=== PATIENT | male | born 1965 | race Caucasian/White ===

== ENCOUNTER 2016-10-08 14:36 | Emergency (ER) | payer BC ==
--- NOTE | 2016-10-08 15:11 | EDM.PDOC ---
ED HISTORY OF PRESENT ILLNESS - General Chief Complaint: Respiratory Problem Stated Complaint: COUGH Time Seen by Provider: 10/08/16 14:54 Source of Information: Reports: Patient History Limitations: Reports: No limitations - History of Present Illness INITIAL COMMENTS - FREE TEXT/NARRATIVE: Presents reporting a 48 hour history of hacking dry cough, mild sore throat. No fever, chest pain, ear fullness or facial fullness. He does not smoke. - Related Data Allergies/ADRs: Allergies Allergy/AdvReac Type Severity Reaction Status Date / Time Penicillins Allergy Cannot Verified 10/08/16 14:43 Remember Sulfa (Sulfonamide Allergy Swelling Verified 10/08/16 14:43 Antibiotics) Home Meds: Home Meds . [No Known Home Meds] 04/21/16 [History] Cimetidine [Tagamet Hb] 200 mg PO DAILY 10/08/16 [History] Multivitamin [Multivitamins] 1 cap PO DAILY 10/08/16 [History] Pantoprazole Sodium [Protonix] 10/08/16 [History] Sucralfate [Carafate] 2 tsp PO Q4H 10/08/16 [History] Past Medical History - Past Health History Medical/Surgical History: Denies Medical/Surgical History Gastrointestinal History: Reports: Other (see below) Other Gastrointestinal History: ULCER Other Endocrine/Metabolic History: hx adrenal surgery for phenochromocytoma - Past Surgical History Other Musculoskeletal Surgeries/Procedures:: left acl reconstruction Social & Family History - Family History Family Medical History: Noncontributory - Tobacco Use Smoking Status *Q: Never Smoker Years of Tobacco use: 35 - Caffeine Use Caffeine Use: Reports: Coffee - Alcohol Use Days Per Week of Alcohol Use: 1 Number of Drinks Per Day: 4 Total Drinks Per Week: 4 - Recreational Drug Use Recreational Drug Use: No ED ROS GENERAL - Review of Systems Review Of Systems: ROS reveals no pertinent complaints other than HPI. ED EXAM, GENERAL - Physical Exam Exam: See Below Exam Limited By: No limitations General Appearance: alert, no apparent distress Ears: normal external exam, other (cerumen impaction right) Nose: normal inspection Throat/Mouth: Other (Mild posterior pharynx irritation but no swelling or exudate) Head: atraumatic, normocephalic Neck: normal inspection. No: lymphadenopathy (L), lymphadenopathy (R) Respiratory/Chest: no respiratory distress, lungs clear, normal breath sounds, other (Almost constant hacking dry cough and exam room) Cardiovascular: normal peripheral pulses, regular rate, rhythm, no murmur GI/Abdominal: soft Neurological: alert, oriented Psychiatric: normal affect, normal mood Skin Exam: Warm, Dry, Intact, Normal color, No rash Lymphatic: no adenopathy Course - Vital Signs Last Recorded V/S: Last Vital Signs Temp 36.7 C 10/08/16 14:41 Pulse 108 H 10/08/16 14:41 Resp 20 10/08/16 14:41 BP 131/94 H 10/08/16 14:41 Pulse Ox 93 L 10/08/16 14:41 Departure - Departure Time of Disposition: 15:05 Disposition: Home, Self-Care 01 Condition: good Clinical Impression: Bronchitis Referrals: PCP,None [Primary Care Provider] - [facility] [Outside] [facility] [Outside] Forms: ED Department Discharge Additional Instructions: 1. Take your steroid 2 tabs daily for 5 days. Take 3 today. 2. Cheratussin 2 tsp every 4-6 hours as needed for cough--no driving or operating machinery. 3. Tessalon pearls 2 every 8 hours as needed for cough. 4. Push oral fluids.
[2016-10-08 15:46] VITALS: BP 105/67
== END 2016-10-08 15:42 | disposition home or self-care (01) ==
LOC: MW.ED 14:36
DX: J40 Bronchitis, not specified as acute or chronic (principal); Z88.0 Allergy status to penicillin; Z88.2 Allergy status to sulfonamides; Z79.899 Other long term (current) drug therapy; Z98.890 Other specified postprocedural states
CPT/HCPCS: 99283

== ENCOUNTER 2017-03-02 10:44 | Emergency (ER) | payer BC ==
--- NOTE | 2017-03-02 10:51 | EDM.PDOC ---
ED HPI GENERAL MEDICAL PROBLEM - General Chief Complaint: Genitourinary Problem Stated Complaint: PEE ALOT BLADER INFECTION, RIGHT THUMB INPAIN Time Seen by Provider: 03/02/17 10:45 Source of Information: Reports: Patient History Limitations: Reports: No Limitations - History of Present Illness INITIAL COMMENTS - FREE TEXT/NARRATIVE: HISTORY AND PHYSICAL: History of present illness: [Patient comes to the emergency room complaining of urinary frequency for the past 1 month. States that he is feeling off, and just not feeling like his normal self. He denies burning with urination and blood in his urine. No penile discharge. No urinary urgency. He feels as though he is not always completely empty out his bladder when he urinates though this is not the case today. Typically urinates large amount every hour. Complains of a nagging ache sensation to his right lower abdomen for the last month as well. He has not had fever or chills. He denies body aches or pains. No chest pain shortness of breath or difficulty breathing. He has not taken any medications for his symptoms. He typically works 7 days a week and thus has not had time to follow- up with his provider who is in [place] where patient lives. Denies increased appetite and thirst. Has a history of acid reflux for which he takes Prevacid.] Review of systems: As per history of present illness and below otherwise all systems reviewed and negative. Past medical history: As per history of present illness and as reviewed below otherwise noncontributory. Surgical history: As per history of present illness and as reviewed below otherwise noncontributory. Social history: No reported history of drug or alcohol abuse. Family history: As per history of present illness and as reviewed below otherwise noncontributory. Physical exam: HEENT: Atraumatic, normocephalic. Oral mucous members are pink and moist. Lungs: Clear to auscultation, breath sounds equal bilaterally. Heart: S1S2, regular rate and rhythm. Abdomen: Bowel sounds are normoactive throughout. Abdomen is soft and nondistended. Is tender with palpation over the suprapubic area, is otherwise nontender with palpation. No CVA tenderness. No masses guarding or rebound. Pelvis: Stable nontender. Genitourinary: Deferred. Rectal: Deferred. Extremities: Atraumatic, negative for cords or calf pain. Neurovascular unremarkable. Neuro: Awake, alert, oriented. Cranial nerves II through XII unremarkable. Cerebellum unremarkable. Motor and sensory unremarkable throughout. Exam nonfocal. Diagnostics: [UA, urine culture, CBC, CMP] Impression: [Urinary tract infection] Plan: [Urinalysis shows positive nitrites. Urine culture pending. Rx written for ciprofloxacin 500 mg #28 sig one by mouth twice a day 0 refills. CBC and CMP are within normal limits. Patient is recommended to follow-up with his primary care provider to recheck his urine and discuss any other complaints or concerns that he may have.] Definitive disposition and diagnosis as appropriate pending reevaluation and review of above. - Related Data Allergies Allergy/AdvReac Type Severity Reaction Status Date / Time Penicillins Allergy Cannot Verified 03/02/17 10:45 Remember Sulfa (Sulfonamide Allergy Swelling Verified 03/02/17 10:45 Antibiotics) Home Meds: Home Meds Multivitamin [Multivitamins] 1 cap PO DAILY 10/08/16 [History] Lansoprazole [Prevacid] 03/02/17 [History] Zolpidem Tartrate [Ambien] 03/02/17 [History] Past Medical History - Past Health History Medical/Surgical History: Denies Medical/Surgical History Gastrointestinal History: Reports: Other (See Below) Other Gastrointestinal History: ULCER Other Endocrine/Metabolic History: hx adrenal surgery for phenochromocytoma - Past Surgical History Other Musculoskeletal Surgeries/Procedures:: left acl reconstruction Social & Family History - Family History Family Medical History: Noncontributory - Tobacco Use Smoking Status *Q: Never Smoker Years of Tobacco use: 35 - Caffeine Use Caffeine Use: Reports: Coffee - Alcohol Use Days Per Week of Alcohol Use: 1 Number of Drinks Per Day: 4 Total Drinks Per Week: 4 - Recreational Drug Use Recreational Drug Use: No ED ROS GENERAL - Review of Systems Review Of Systems: ROS reveals no pertinent complaints other than HPI. ED EXAM, RENAL/ - Physical Exam Exam: See Below Course - Vital Signs Last Recorded V/S: Last Vital Signs Temp 97.5 F 03/02/17 10:47 Pulse 101 H 03/02/17 10:47 Resp 20 03/02/17 10:47 BP 148/99 H 03/02/17 10:47 Pulse Ox 98 03/02/17 10:47 - Orders/Labs/Meds Orders: Active Orders 24 hr Category Date Time Status CULTURE URINE [RM] Stat Lab 03/02/17 10:57 Received Labs: Laboratory Tests 03/02/17 03/02/17 03/02/17 Range/Units 10:58 10:58 10:58 WBC 8.20 (4.0-11.0) K/uL RBC 5.41 (4.50-5.90) M/uL Hgb 16.0 (13.0-17.0) g/dL Hct 46.7 (38.0-50.0) % MCV 86.3 (80.0-98.0) fL MCH 29.6 (27.0-32.0) pg MCHC 34.3 (31.0-37.0) g/dL RDW Std Deviation 42.9 (28.0-62.0) fl RDW Coeff of Stephen 14 (11.0-15.0) % Plt Count 267 (150-400) K/uL MPV 10.60 (7.40-12.00) fL Neut % (Auto) 59.4 (48.0-80.0) % Lymph % (Auto) 27.9 (16.0-40.0) % Dukes % (Auto) 10.4 (0.0-15.0) % Eos % (Auto) 1.8 (0.0-7.0) % Baso % (Auto) 0.5 (0.0-1.5) % Neut # (Auto) 4.9 (1.4-5.7) K/uL Lymph # (Auto) 2.3 (0.6-2.4) K/uL Dukes # (Auto) 0.9 H (0.0-0.8) K/uL Eos # (Auto) 0.2 (0.0-0.7) K/uL Baso # (Auto) 0.0 (0.0-0.1) K/uL Nucleated RBC % 0.0 /100WBC Nucleated RBCs # 0 K/uL Sodium 142 (136-146) mmol/L Potassium 4.5 (3.5-5.1) mmol/L Chloride 109 (98-110) mmol/L Carbon Dioxide 23 (21-31) mmol/L BUN 16 (6.0-23.0) mg/dL Creatinine 1.1 (0.6-1.5) mg/dL Est Cr Clr Drug Dosing 82.72 mL/min Estimated GFR (MDRD) > 60.0 ml/min Glucose 100 (60-110) mg/dL Calcium 9.7 (8.8-10.8) mg/dL Total Bilirubin 0.5 (0.1-1.5) mg/dL AST 23 (5-40) IU/L ALT 41 (8-54) IU/L Alkaline Phosphatase 84 (40-150) Total Protein 7.7 (6.0-8.0) g/dL Albumin 4.5 (3.5-5.0) g/dL Globulin 3.2 (2.0-3.5) g/dL Albumin/Globulin Ratio 1.4 (1.3-2.8) Urine Color YELLOW Urine Appearance CLEAR Urine pH 5.5 (5.0-8.0) Ur Specific [place] <= 1.005 (1.001-1.035) Urine Protein NEGATIVE (NEGATIVE) mg/dL Urine Glucose (UA) NEGATIVE (NEGATIVE) mg/dL Urine Ketones NEGATIVE (NEGATIVE) mg/dL Urine Occult Blood NEGATIVE (NEGATIVE) Urine Nitrite POSITIVE H (NEGATIVE) Urine Bilirubin NEGATIVE (NEGATIVE) Urine Urobilinogen 0.2 (<2.0) EU/dL Ur Leukocyte Esterase NEGATIVE (NEGATIVE) Urine RBC 0-2 (0-2/HPF) Urine WBC 0-1 (0-5/HPF) Ur Epithelial Cells RARE (NONE-FEW) Urine Bacteria FEW (NEGATIVE) Departure - Departure Time of Disposition: 11:30 Disposition: Home, Self-Care 01 Condition: Good Clinical Impression: UTI, Urinary tract infectious disease - Discharge Information Instructions: Urinary Tract Infection, Adult, [id number] Referrals: PCP,None [Primary Care Provider] - Forms: ED Department Discharge Additional Instructions: The following information is given to patients seen in the emergency department who are being discharged to home. This information is to outline your options for follow-up care. We provide all patients seen in our emergency department with a follow-up referral. The need for follow-up, as well as the timing and circumstances, are variable depending upon the specifics of your emergency department visit. If you don't have a primary care physician on staff, we will provide you with a referral. We always advise you to contact your personal physician following an emergency department visit to inform them of the circumstance of the visit and for follow-up with them and/or the need for any referrals to a consulting specialist. The emergency department will also refer you to a specialist when appropriate. This referral assures that you have the opportunity for follow-up care with a specialist. All of these measure are taken in an effort to provide you with optimal care, which includes your follow-up. Under all circumstances we always encourage you to contact your private physician who remains a resource for coordinating your care. When calling for follow-up care, please make the office aware that this follow-up is from your recent emergency room visit. If for any reason you are refused follow-up, please contact the [facility] emergency department at and asked to speak to the emergency department charge nurse. [facility] [address] [place] [id number] Follow-up with your primary care provider or the clinic listed above in 7 days. Take antibiotics as prescribed. Push fluids. Return to ER as needed as discussed. - My Orders Last 24 Hours: My Active Orders 03/02/17 10:57 CULTURE URINE [RM] Stat - Assessment/Plan Last 24 Hours: My Active Orders 03/02/17 10:57 CULTURE URINE [RM] Stat
[2017-03-02 11:23] LABS: CHLORIDE,CL 109 mmol/L (98-110); SODIUM,NA 142 mmol/L (136-146)
[2017-03-02 11:37] VITALS: BP 124/94
== END 2017-03-02 11:30 | disposition home or self-care (01) ==
LOC: MW.ED 10:44
DX: N39.0 Urinary tract infection, site not specified (principal); Z88.0 Allergy status to penicillin; Z88.2 Allergy status to sulfonamides
CPT/HCPCS: 36415; 80053; 81001; 85025; 87086; 99283

== ENCOUNTER 2017-05-11 10:18 | Emergency (ER) | payer BC ==
[2017-05-11] MEDS ORDERED: Sodium Chloride 0.9% 2.5 ML Syringe FLUSH PRN (10:22)
[2017-05-11] MEDS ORDERED: Sodium Chloride 0.9% 10 ML Syringe FLUSH PRN (10:22)
[2017-05-11] MEDS ORDERED: Sodium Chloride 0.9% 1,000 ML IV SCH (10:30)
--- NOTE | 2017-05-11 10:37 | EDM.PDOC ---
ED HPI GENERAL MEDICAL PROBLEM - General Stated Complaint: SICK Time Seen by Provider: 05/11/17 10:19 Source of Information: Reports: Patient History Limitations: Reports: No Limitations - History of Present Illness INITIAL COMMENTS - FREE TEXT/NARRATIVE: HISTORY AND PHYSICAL: []52-year-old male presenting with cough and sinus pressure History of Present Illness: []Patient has history of bronchitis. He is having chest wall discomfort due to his coughing. Review of Systems: As per history of present illness and below otherwise all systems reviewed and negative. Past medical history: As per history of present illness and as reviewed below otherwise noncontributory. Surgical history: As per history of present illness and as reviewed below otherwise noncontributory. Social history: No reported history of drug or alcohol abuse. Family history: As per history of present illness and as reviewed below otherwise noncontributory. Physical exam: Alert and oriented male who is answering questions in about/3-4 word sentences, due to coughing with talking HEENT: Atraumatic, normocehpalic, pupils reactive, negative for conjunctival pallor or scleral icterus, mucous membranes moist, throat red, alert a creamy exudate noted to the posterior pharynx, neck supple, nontender, trachea midline. Lungs: Mild wheezing to auscultation, breath sounds equal bilaterally, chest non tender. Heart: S1S2, regular, negative for clicks, rubs, or JVD. Abdomen: Soft, nondistended, nontender. Negative for masses or hepatossplenmegaly. Negative for costovertebral tenderness. Pelvis: Stable nontender. Genitourinary: Deferred. Rectal: Deferred Extremities: Atraumatic, negative for cords or calf pain. Neurovascular unremarkable. Neuro: Awake, alert, oriented. Cranial nerves II through XII unremarkable. Cerebellum unremarkable. Motor and sensory unremarkable throughout. Exam nonfocal. Diagnostics: [] Therapeutics: [] Impression: [Acute bronchitis] Plan: [Be discharged home Prescription for Tessalon Perles Medrol Dosepak Azithromycin Definitive disposition and diagnosis as appropriate pending reevaluation and review of above. - Related Data Allergies Allergy/AdvReac Type Severity Reaction Status Date / Time Penicillins Allergy Cannot Verified 03/02/17 10:45 Remember Sulfa (Sulfonamide Allergy Swelling Verified 03/02/17 10:45 Antibiotics) Home Meds: Home Meds Multivitamin [Multivitamins] 1 cap PO DAILY 10/08/16 [History] Lansoprazole [Prevacid] 03/02/17 [History] Zolpidem Tartrate [Ambien] 03/02/17 [History] Azithromycin [IJD: Azithromycin] 250 mg PO DAILY #6 tab 05/11/17 [Rx] Benzonatate [Tessalon Perles] 100 mg PO QID #40 cap 05/11/17 [Rx] methylPREDNISolone [Medrol] 4 mg PO ASDIRECTED #1 dosepk 05/11/17 [Rx] Past Medical History - Past Health History Medical/Surgical History: Denies Medical/Surgical History HEENT History: Reports: None Cardiovascular History: Reports: None Respiratory History: Reports: None Gastrointestinal History: Reports: Other (See Below) Other Gastrointestinal History: ULCER Genitourinary History: Reports: Other (See Below) Other Genitourinary History: pheochromocytoma Neurological History: Reports: None Psychiatric History: Reports: None Other Endocrine/Metabolic History: hx adrenal surgery for phenochromocytoma Dermatologic History: Reports: None - Infectious Disease History Infectious Disease History: Reports: Chicken Pox, Measles - Past Surgical History Other Musculoskeletal Surgeries/Procedures:: left acl reconstruction Social & Family History - Family History Family Medical History: Noncontributory - Tobacco Use Smoking Status *Q: Never Smoker Years of Tobacco use: 35 - Caffeine Use Caffeine Use: Reports: Coffee - Alcohol Use Days Per Week of Alcohol Use: 1 Number of Drinks Per Day: 4 Total Drinks Per Week: 4 - Recreational Drug Use Recreational Drug Use: No ED ROS GENERAL - Review of Systems Review Of Systems: ROS reveals no pertinent complaints other than HPI. ED EXAM, GENERAL - Physical Exam Exam: See Below (See dictation) Course - Orders/Labs/Meds Orders: Active Orders 24 hr Category Date Time Status Cardiac Monitoring [RC] . DIRECTED Care 05/11/17 10:21 Inactive EKG Documentation Completion [RC] STAT Care 05/11/17 10:21 Inactive Pulse Oximetry [RC] ASDIRECTED Care 05/11/17 10:21 Inactive Chest 2V [CR] Stat Exams 05/11/17 10:22 Stop Req Head wo Cont [CT] Stat Exams 05/11/17 10:22 Stop Req Departure - Departure Time of Disposition: 10:35 Disposition: Home, Self-Care 01 Condition: Good Clinical Impression: Bronchitis - Discharge Information Prescriptions: Azithromycin [IJD: Azithromycin] 250 mg PO DAILY #6 tab Benzonatate [Tessalon Perles] 100 mg PO QID #40 cap methylPREDNISolone [Medrol] 4 mg PO ASDIRECTED #1 dosepk
[2017-05-11 14:57] VITALS: BP 122/89
== END 2017-05-11 11:05 | disposition home or self-care (01) ==
LOC: MW.ED 10:18
DX: J20.9 Acute bronchitis, unspecified (principal); Z88.0 Allergy status to penicillin; Z88.2 Allergy status to sulfonamides; Z79.899 Other long term (current) drug therapy
CPT/HCPCS: 99282; 99283

== ENCOUNTER 2017-05-20 13:42 | Emergency (ER) | payer BC ==
--- NOTE | 2017-05-20 14:59 | EDM.PDOC ---
ED HPI GENERAL MEDICAL PROBLEM - General Chief Complaint: Respiratory Problem Stated Complaint: COLD Time Seen by Provider: 05/20/17 13:50 Source of Information: Reports: Patient History Limitations: Reports: No Limitations - History of Present Illness INITIAL COMMENTS - FREE TEXT/NARRATIVE: History of present illness: []Patient has had a cough for over a week. He's been treated with Zithromax and continues to have congestion and coughing. He denies any chest pain fevers, chills, dizziness or lightheadedness. Review of systems: As per history of present illness and below otherwise all systems reviewed and negative. Past medical history: As per history of present illness and as reviewed below otherwise noncontributory. Surgical history: As per history of present illness and as reviewed below otherwise noncontributory. Social history: No reported history of drug or alcohol abuse. Family history: As per history of present illness and as reviewed below otherwise noncontributory. Physical exam: General: Well developed, well nourished in NAD HEENT: Atraumatic, normocephalic, pupils reactive, negative for conjunctival pallor or scleral icterus, mucous membranes moist, throat clear, neck supple, nontender, trachea midline. Lungs: Clear to auscultation, breath sounds equal bilaterally, chest nontender. Heart: S1S2, regular, negative for clicks, rubs, or JVD. Abdomen: Soft, nondistended, nontender. Negative for masses or hepatosplenomegaly. Negative for costovertebral tenderness. Pelvis: Stable nontender. Genitourinary: Deferred. Rectal: Deferred. Extremities: Atraumatic, negative for cords or calf pain. Neurovascular unremarkable. Neuro: Awake, alert, oriented. Cranial nerves II through XII unremarkable. Cerebellum unremarkable. Motor and sensory unremarkable throughout. Exam nonfocal. Diagnostics: []Chest x-ray is negative influenza negative Therapeutics: [] Impression: []Bronchitis completed a Z-Semaj, Plan: []Albuterol inhaler encourage coughing follow-up with primary care Definitive disposition and diagnosis as appropriate pending reevaluation and review of above. - Related Data Allergies Allergy/AdvReac Type Severity Reaction Status Date / Time Penicillins Allergy Cannot Verified 05/20/17 14:01 Remember Sulfa (Sulfonamide Allergy Swelling Verified 05/20/17 14:01 Antibiotics) Home Meds: Home Meds Multivitamin [Multivitamins] 1 cap PO DAILY 10/08/16 [History] Lansoprazole [Prevacid] 30 mg PO DAILY 03/02/17 [History] Zolpidem Tartrate [Ambien] 5 mg PO DAILY 03/02/17 [History] Azithromycin [IJD: Azithromycin] 250 mg PO DAILY #6 tab 05/11/17 [Rx] Benzonatate [Tessalon Perles] 100 mg PO QID #40 cap 05/11/17 [Rx] methylPREDNISolone [Medrol] 4 mg PO ASDIRECTED #1 dosepk 05/11/17 [Rx] Albuterol Sulfate [Ventolin Hfa] 8 gm IH Q4HR PRN #1 [email or web address] 05/20/17 [Rx] Past Medical History - Past Health History Medical/Surgical History: Denies Medical/Surgical History HEENT History: Reports: None Cardiovascular History: Reports: None Respiratory History: Reports: None Gastrointestinal History: Reports: Other (See Below) Other Gastrointestinal History: ULCER Genitourinary History: Reports: Other (See Below) Other Genitourinary History: pheochromocytoma Musculoskeletal History: Reports: None Neurological History: Reports: None Psychiatric History: Reports: None Endocrine/Metabolic History: Reports: Other (See Below) Other Endocrine/Metabolic History: hx adrenal surgery for phenochromocytoma Hematologic History: Reports: None Immunologic History: Reports: None Oncologic (Cancer) History: Reports: None Dermatologic History: Reports: None - Infectious Disease History Infectious Disease History: Reports: Chicken Pox, Measles - Past Surgical History Head Surgeries/Procedures: Reports: None HEENT Surgical History: Reports: None Cardiovascular Surgical History: Reports: None Respiratory Surgical History: Reports: None GI Surgical History: Reports: None Male Surgical History: Reports: None Endocrine Surgical History: Reports: None Other Musculoskeletal Surgeries/Procedures:: left acl reconstruction Oncologic Surgical History: Reports: None Social & Family History - Family History Family Medical History: Noncontributory - Tobacco Use Smoking Status *Q: Never Smoker Years of Tobacco use: 35 - Caffeine Use Caffeine Use: Reports: Coffee - Alcohol Use Days Per Week of Alcohol Use: 1 Number of Drinks Per Day: 4 Total Drinks Per Week: 4 - Recreational Drug Use Recreational Drug Use: No ED ROS GENERAL - Review of Systems Review Of Systems: See Below ED EXAM, GENERAL - Physical Exam Exam: See Below (CHPI) Course - Vital Signs Last Recorded V/S: Last Vital Signs Temp 97.2 F 05/20/17 14:02 Pulse 106 H 05/20/17 14:02 Resp 18 05/20/17 14:02 BP 126/88 05/20/17 14:02 Pulse Ox 96 05/20/17 14:02 - Orders/Labs/Meds Orders: Active Orders 24 hr Category Date Time Status Chest 2V [CR] Stat Exams 05/20/17 14:16 Taken Departure - Departure Time of Disposition: 15:00 Disposition: Home, Self-Care 01 Condition: Good Clinical Impression: Bronchitis - Discharge Information Prescriptions: Albuterol Sulfate [Ventolin Hfa] 8 gm IH Q4HR PRN #1 [email or web address] PRN Reason: Cough Referrals: PCP,None [Primary Care Provider] - Forms: ED Department Discharge Additional Instructions: The following information is given to patients seen in the emergency department who are being discharged to home. This information is to outline your options for follow-up care. We provide all patients seen in our emergency department with a follow-up referral. The need for follow-up, as well as the timing and circumstances, are variable depending upon the specifics of your emergency department visit. If you don't have a primary care physician on staff, we will provide you with a referral. We always advise you to contact your personal physician following an emergency department visit to inform them of the circumstance of the visit and for follow-up with them and/or the need for any referrals to a consulting specialist. The emergency department will also refer you to a specialist when appropriate. This referral assures that you have the opportunity for follow-up care with a specialist. All of these measure are taken in an effort to provide you with optimal care, which includes your follow-up. Under all circumstances we always encourage you to contact your private physician who remains a resource for coordinating your care. When calling for follow-up care, please make the office aware that this follow-up is from your recent emergency room visit. If for any reason you are refused follow-up, please contact the [facility] Emergency Department at and asked to speak to the emergency department charge nurse. Use albuterol inhaler 2 puffs every 4 hours for coughing and wheezing. Follow- up with primary care physician. [facility] [address] [place] [id number] - My Orders Last 24 Hours: My Active Orders 05/20/17 14:16 Chest 2V [CR] Stat - Assessment/Plan Last 24 Hours: My Active Orders 05/20/17 14:16 Chest 2V [CR] Stat
--- NOTE | 2017-05-20 15:01 | CR ---
EXAMINATION: Two-view chest (PA and Lateral views). HISTORY: Shortness of breath. FINDINGS: The trachea is midline. The cardiomediastinal silhouette is within normal limits. No pulmonary infilt rates, effusions or pneumothorax. Osseous structures appear unremarkable. IMPRESSION: No acute cardiopulmonary process.
[2017-05-20 15:11] VITALS: BP 135/72
== END 2017-05-20 15:11 | disposition home or self-care (01) ==
LOC: MW.ED 13:42
DX: J40 Bronchitis, not specified as acute or chronic (principal); Z88.0 Allergy status to penicillin; Z88.2 Allergy status to sulfonamides; Z79.899 Other long term (current) drug therapy
CPT/HCPCS: 71020; 71020-26; 87804; 99283; 99284